=== PATIENT | male | born 1990 | race Caucasian/White ===

== ENCOUNTER 2021-11-08 10:36 | Emergency (ER) | payer OTHER, SELFPAY ==
[2021-11-08 10:39] VITALS: BP 158/98; PULSE 95; RESP 17; TEMP 36.6; O2SAT 99; BMI 28.5
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
== END 2021-11-08 11:00 | disposition home or self-care (01) ==
LOC: ED 10:57
PROVIDERS: Emergency Provider Emergency Medicine; PCP Clinical Nurse Specialist; Visit Provider Emergency Medicine
DX: Z00.00 Encounter for general adult medical examination without abnormal findings (principal)
CPT/HCPCS: 99282